=== PATIENT | male | born 1980 | race Caucasian/White ===

== ENCOUNTER 2021-10-04 10:18 | Emergency (ER) | payer OTHER ==
[~2021-10-04] VITALS: Ht 182.9 cm; Wt 72.6 kg
== END 2021-10-04 11:56 | disposition home or self-care (01) ==
LOC: ER 10:38
DX: M79.662 Pain in left lower leg (principal); I82.432 Acute embolism and thrombosis of left popliteal vein; I82.442 Acute embolism and thrombosis of left tibial vein; Z85.038 Personal history of other malignant neoplasm of large intestine
CPT/HCPCS: 93971; 99283

== ENCOUNTER 2021-12-20 12:23 | Emergency (ER) | payer OTHER ==
[~2021-12-20] VITALS: Ht 182.9 cm; Wt 72.6 kg
[2021-12-20] MEDS ORDERED: FAMOTIDINE 20 MG/2 ML VIAL IV STA (12:43)
[2021-12-20] MEDS ORDERED: SUCRALFATE 1 GM TAB PO ONE (12:45)
[2021-12-20] MEDS ORDERED: SODIUM CHLORIDE 0.9% 1000ML 1,000 ML IV ONE ×2 (12:45)
[2021-12-20 13:40] LABS: BASOPHILS % 0.7 % (0.0-1.0); EOSINOPHILS # (AUTO) 0.1 (0.0-0.4); EOSINOPHILS % 2.2 % (0.0-6.0); HEMATOCRIT 36.3 % (38.2-49.6); HEMOGLOBIN 11.6 g/dL (14.0-18.0); LYMPHOCYTES # (AUTO) 1.7 (1.0-3.2); LYMPHOCYTES % 28.2 % (18.0-39.1); MEAN CORPUSCULAR HEMOGLOBIN 30.1 pg (28-32); MEAN CORPUSCULAR VOLUME 94.3 fL (81-99); MONOCYTES # (AUTO) 0.7 (0.2-0.8); MONOCYTES % 12.3 % (4.4-11.3); NEUTROPHILS # (AUTO) 3.3 (2.1-6.9); NEUTROPHILS % 56.3 % (38.7-80.0); PLATELET COUNT 241 x10e3/uL (140-360); RED BLOOD COUNT 3.85 x10e6/uL (4.3-5.7); RED CELL DISTRIBUTION WIDTH 17.9 % (11.7-14.4)
[2021-12-20 14:00] LABS: ALBUMIN 3.2 g/dL (3.5-5.0); ANION GAP 13.3 mmol/L (8-16); CALCIUM 8.3 mg/dL (8.4-10.2); CREATININE, SERUM 0.88 mg/dL (0.72-1.25); POTASSIUM 3.3 mmol/L (3.5-5.1)
[2021-12-20] MEDS ORDERED: POTASSIUM CHLORIDE 20MEQ/100ML 100 ML IV ONE (14:30)
[2021-12-20] MEDS ORDERED: CARAFATE1 GM PO (16:40)
[2021-12-20] MEDS ORDERED: LOMOTIL TABLET1 EACH PO (16:40)
== END 2021-12-20 17:25 | disposition home or self-care (01) ==
LOC: ER 12:29
DX: R19.7 Diarrhea, unspecified (principal); E87.6 Hypokalemia; Z79.899 Other long term (current) drug therapy; Z85.038 Personal history of other malignant neoplasm of large intestine
CPT/HCPCS: 36415; 80053; 85025; 99284; J3480; J7030